=== PATIENT | female | born 1990 | race Caucasian/White ===

== ENCOUNTER 2017-06-02 07:16 | Day surgery (SDC) | payer BC ==
[~2017-06-02 07:16] MED LIST: Lactated Ringers 1,000 ML IV SCH; Sodium Chloride 0.9% 10 ML Syringe FLUSH PRN
[2017-06-02] MEDS ORDERED: Midazolam 1 MG/ML 2 ML SDV IV ONE (08:00)
[2017-06-02] MEDS ORDERED: Lidocaine 2% 100 MG/5 ML Syringe IVPUSH ONE (08:00)
[2017-06-02] MEDS ORDERED: Propofol 200 MG/20 ML SDV IV ONE ×2 (08:00→08:30)
--- NOTE | 2017-06-02 09:05 | PCM.OPNOTE ---
- General Post-Op/Procedure Note Date of Surgery/Procedure: 06/02/17 Operative Procedure(s): egd with bx Findings: gastroduodenitis esophagitis Pre Op Diagnosis: epigastric abd pain Post-Op Diagnosis: gastroduodenitis. esophagitis Anesthesia Technique: [facility] [place] Primary Surgeon: Calos Valenzuela Anesthesia Provider: Delilah Zepeda Pathology: stomach duodenum and esophagus Complications: None Condition: Good Free Text/Narrative:: see dictation
--- NOTE | 2017-06-02 09:25 | OR ---
DATE OF OPERATION: 06/02/2017 SURGEON: Calos Valenzuela MD PROCEDURE PERFORMED: Upper endoscopy with cold forceps biopsy. PREOPERATIVE DIAGNOSIS: Epigastric abdominal pain. POSTOPERATIVE DIAGNOSIS: Gastroduodenitis and esophagitis. INDICATIONS FOR PROCEDURE: This is a 27-year-old white female, who has a longstanding history of epigastric discomfort and pain. Apparently, she has had upper endoscopies in the past and has been informed that she has irritable bowel syndrome. She was offered and accepted an EGD. DESCRIPTION OF OPERATION: After an excellent IV sedation was administered, the bite block was inserted. The flexible endoscope was passed without difficulty down the patient's esophagus into the stomach. The stomach was insufflated, scope was passed through the pylorus to the second portion of duodenum and slowly withdrawn. The following findings were noted. Duodenum 1st portion mild duodenitis, biopsies were taken. Stomach diffuse mild gastritis, mild biopsies were taken. Distal esophagus, a small Schatzki's ring, really not big enough to comment on and some mild irritation in the distal esophagus. Stomach was deflated, scope was removed. The patient tolerated the procedure well and was taken to recovery room in good condition. /[id number] /MODL
[2017-06-02 10:57] VITALS: BP 116/68
== END 2017-06-02 10:20 | disposition home or self-care (01) ==
LOC: FB.SDS 07:16
PROVIDERS: ATTEND Surgery
DX: K29.80 Duodenitis without bleeding (principal); K20.9 Esophagitis, unspecified; K29.50 Unspecified chronic gastritis without bleeding; F41.8 Other specified anxiety disorders; K21.9 Gastro-esophageal reflux disease without esophagitis; Z79.82 Long term (current) use of aspirin; Z79.899 Other long term (current) drug therapy; Z98.890 Other specified postprocedural states
CPT/HCPCS: 43239; 81025; 88305; 88342; J2250; J2704; J7120

== ENCOUNTER 2018-05-03 17:02 | Emergency (ER) | payer BC ==
[2018-05-03] MEDS ORDERED: Ondansetron 4 MG/2 ML SDV IVPUSH ONE (17:17)
[2018-05-03] MEDS ORDERED: Sodium Chloride 0.9% 1,000 ML IV ONE (17:17)
[2018-05-03] MEDS ORDERED: Ketorolac 30 MG/ML SDV IVPUSH ONE (17:20)
[2018-05-03] MEDS ORDERED: Sodium Chloride 0.9% 10 ML Syringe FLUSH PRN (20:14)
[2018-05-03 20:47] VITALS: BP 120/75
--- NOTE | 2018-05-03 20:53 | EDM.PDOC ---
ED HPI GENERAL MEDICAL PROBLEM - General Stated Complaint: 10 WEEKS ,HEAVY BLEEDING Time Seen by Provider: 05/03/18 17:05 Source of Information: Reports: Patient History Limitations: Reports: No Limitations - History of Present Illness INITIAL COMMENTS - FREE TEXT/NARRATIVE: c/o vag bleed at 10w gestation, PCP Dr Dinero, had u/a done, no blood work, no yet seen Dr iDnero\ pt here with pt with mild cramps x 5d, inc'd x 24h, quite hard cramps on arrival and had several gushes of blood intravag proble by educational technology coordinator showed empty uterus with symmetric thickened endometrium, nl ovaries and large clot in vagina which evacuated shortly thereafter serum HCG 23k and 1/2 expected level, CBC and BMP neg had pads x 3 after passing large clot which was sent to path pt did not know Rh which was tested and was neg, given just over 50 mcg mini dose of Rhogram (1/5th of full dose of 300 micrograms) no clinical evidence of infection uterus completely evacuated except for residual endometrium and SAB counseling completed pt and plan to try to get again, had tried for 6m this time - Related Data Allergies Allergy/AdvReac Type Severity Reaction Status Date / Time No Known Allergies Allergy Verified 05/03/18 20:10 Home Meds: Home Meds NK [No Known Home Meds] 05/03/18 [History] Past Medical History HEENT History: Reports: Allergic Rhinitis Cardiovascular History: Reports: Heart Murmur Gastrointestinal History: Reports: GERD, Irritable Bowel Syndrome Musculoskeletal History: Reports: Back Pain, Chronic Psychiatric History: Reports: Anxiety, Depression - Past Surgical History HEENT Surgical History: Reports: Oral Surgery Social & Family History - Caffeine Use Caffeine Use: Reports: Soda ED ROS GENERAL - Review of Systems Review Of Systems: See Below Constitutional: Reports: No Symptoms HEENT: Reports: No Symptoms Respiratory: Reports: No Symptoms Cardiovascular: Reports: No Symptoms Endocrine: Reports: No Symptoms GI/Abdominal: Reports: Abdominal Pain : Reports: Other (vag bleeding) Musculoskeletal: Reports: No Symptoms Skin: Reports: No Symptoms Neurological: Reports: No Symptoms Psychiatric: Reports: No Symptoms Hematologic/Lymphatic: Reports: No Symptoms Immunologic: Reports: No Symptoms ED EXAM - Physical Exam Exam: See Below Exam Limited By: No Limitations General Appearance: Alert, WD/WN, Mild Distress Eye Exam: Bilateral Eye: Normal Inspection Ears: Normal External Exam, Hearing Grossly Normal Nose: Normal Inspection, Normal Mucosa, No Blood Throat/Mouth: Normal Inspection, Normal Teeth, Normal Voice Head: Atraumatic Neck: Normal Inspection, Supple, Non-Tender, Full Range of Motion Respiratory/Chest: No Respiratory Distress, Lungs Clear, Normal Breath Sounds, No Accessory Muscle Use, Chest Non-Tender Cardiovascular: Regular Rate, Rhythm, No Edema, No Gallop, No Murmur, No Rub GI/Abdominal Exam: Normal Bowel Sounds, Soft, No Distention, Other (slight tender in suprpubic area, no CVAT) (Female) Exam: Vaginal Bleeding, Other (deferred) Back Exam: Normal Inspection, Full Range of Motion. No: CVA Tenderness (R), CVA Tenderness (L) Extremities: Normal Inspection, Normal Range of Motion, Non-Tender, No Pedal Edema Neurological: Alert, Oriented, CN II-XII Intact, Normal Cognition, No Motor/ Sensory Deficits Psychiatric: Normal Affect, Normal Mood Skin Exam: Warm, Dry, Intact, Normal Color, No Rash Lymphatic: No Adenopathy Course - Vital Signs Last Recorded V/S: Last Vital Signs Temp 36.6 C 05/03/18 20:45 Pulse 75 05/03/18 20:45 Resp 18 05/03/18 20:45 BP 120/75 05/03/18 20:45 Pulse Ox 97 05/03/18 20:45 - Orders/Labs/Meds Orders: Active Orders 24 hr Category Date Time Status OB 1st Tri Sgl 1st Gest [US] Stat Exams 05/03/18 17:48 Ordered RH IMMUNE GLOBULIN [BBK] Stat Lab 05/03/18 17:40 Results RHOGAM, [RHIG WORKUP, ] [BBK] Stat Lab 05/03/18 19:56 Ordered Sodium Chloride 0.9% [Saline Flush] Med 05/03/18 20:14 Active 10 ml FLUSH ASDIRECTED PRN Peripheral IV Insertion Adult [OM.PC] Routine Oth 05/03/18 17:10 Ordered Medication Orders Sodium Chloride (Saline Flush) 10 ml FLUSH ASDIRECTED PRN PRN Reason: Keep Vein Open Last Admin: 05/03/18 17:20 Dose: 10 ml Labs: Laboratory Tests 05/03/18 05/03/18 05/03/18 Range/Units 17:40 17:40 17:40 WBC 12.6 H (4.5-12.0) X10-3/uL RBC 4.74 (3.23-5.20) x10(6)uL Hgb 14.2 (11.5-15.5) g/dL Hct 41.3 (30.0-51.3) % MCV 87.1 (80-96) fL MCH 29.9 (27.7-33.6) pg MCHC 34.3 (32.2-35.4) g/dL RDW 12.0 (11.5-15.5) % Plt Count 320 (125-369) X10(3)uL MPV 7.5 (7.4-10.4) fL Neut % (Auto) 73.8 (46-82) % Lymph % (Auto) 20.8 (13-37) % [place] % (Auto) 4.4 (4-12) % Eos % (Auto) 1 (1.0-5.0) % Baso % (Auto) 0 (0-2) % Neut # (Auto) 9.2 H (1.6-8.3) # Lymph # (Auto) 2.6 (0.6-5.0) # [place] # (Auto) 0.6 (0.0-1.3) # Eos # (Auto) 0.1 (0.0-0.8) # Baso # (Auto) 0.1 (0.0-0.2) # Sodium 138 (135-145) mmol/L Potassium 4.1 (3.5-5.3) mmol/L Chloride 101 (100-110) mmol/L Carbon Dioxide 27 (21-32) mmol/L BUN 12 (7-18) mg/dL Creatinine 0.7 (0.55-1.02) mg/dL Est Cr Clr Drug Dosing TNP Estimated GFR (MDRD) > 60 (>60) BUN/Creatinine Ratio 17.1 (9-20) Glucose 91 (80-116) mg/dL Calcium 9.3 (8.6-10.2) mg/dL HCG, Quant 16089 (<5) mIU/mL Blood Type Gel Antibody Screen Rhogam Indicated 05/03/18 05/03/18 Range/Units 17:40 17:40 WBC (4.5-12.0) X10-3/uL RBC (3.23-5.20) x10(6)uL Hgb (11.5-15.5) g/dL Hct (30.0-51.3) % MCV (80-96) fL MCH (27.7-33.6) pg MCHC (32.2-35.4) g/dL RDW (11.5-15.5) % Plt Count (125-369) X10(3)uL MPV (7.4-10.4) fL Neut % (Auto) (46-82) % Lymph % (Auto) (13-37) % [place] % (Auto) (4-12) % Eos % (Auto) (1.0-5.0) % Baso % (Auto) (0-2) % Neut # (Auto) (1.6-8.3) # Lymph # (Auto) (0.6-5.0) # [place] # (Auto) (0.0-1.3) # Eos # (Auto) (0.0-0.8) # Baso # (Auto) (0.0-0.2) # Sodium (135-145) mmol/L Potassium (3.5-5.3) mmol/L Chloride (100-110) mmol/L Carbon Dioxide (21-32) mmol/L BUN (7-18) mg/dL Creatinine (0.55-1.02) mg/dL Est Cr Clr Drug Dosing Estimated GFR (MDRD) (>60) BUN/Creatinine Ratio (9-20) Glucose (80-116) mg/dL Calcium (8.6-10.2) mg/dL HCG, Quant (<5) mIU/mL Blood Type A NEGATIVE A NEGATIVE Gel Antibody Screen Negative Rhogam Indicated Yes Meds: Medications Generic Name Dose Route Start Last Admin Trade Name Freq PRN Reason Stop Dose Admin Sodium Chloride 10 ml 05/03/18 20:14 05/03/18 17:20 Saline Flush FLUSH 10 ml ASDIRECTED PRN Administration Keep Vein Open Discontinued Medications Generic Name Dose Route Start Last Admin Trade Name Freq PRN Reason Stop Dose Admin Sodium Chloride 1,000 mls @ 999 mls/hr 05/03/18 17:17 05/03/18 17:20 Normal Saline IV 05/03/18 18:17 999 mls/hr .BOLUS ONE Administration Ketorolac Tromethamine 30 mg 05/03/18 17:20 05/03/18 17:20 Toradol IVPUSH 05/03/18 17:21 30 mg ONETIME ONE Administration Ondansetron HCl 4 mg 05/03/18 17:17 05/03/18 17:20 Zofran IVPUSH 05/03/18 17:18 4 mg ONETIME ONE Administration Departure - Departure Time of Disposition: 20:54 Disposition: Home, Self-Care 01 Clinical Impression: Miscarriage - Discharge Information Instructions: Miscarriage Referrals: Viktor Munoz MD [Primary Care Provider] - Additional Instructions: Rest for 24 hours. Increase fluids. See your doctor in 2 days. Return to ED if you are feeling worse or have increase bleeding or fever or new symptoms. For cramping, as needed, take ibuprofen 200 mg 3 tabs and acetaminophen 500 mg 2 tabs 4 times a day. Call your Physician or Return to Emergency Department if: * Your condition worsens in any way. * You develop fever greater than 100.4. * You have vomitting that does not stop with medications. * You have pain that is not controlled with medications. - My Orders Last 24 Hours: My Active Orders 05/03/18 17:10 Peripheral IV Insertion Adult [OM.PC] Routine 05/03/18 17:40 RH IMMUNE GLOBULIN [BBK] Stat 05/03/18 17:48 OB 1st Tri Sgl 1st Gest [US] Stat 05/03/18 19:56 RHOGAM, [RHIG WORKUP, ] [BBK] Stat 05/03/18 20:14 Sodium Chloride 0.9% [Saline Flush] 10 ml FLUSH ASDIRECTED PRN - Assessment/Plan Last 24 Hours: My Active Orders 05/03/18 17:10 Peripheral IV Insertion Adult [OM.PC] Routine 05/03/18 17:40 RH IMMUNE GLOBULIN [BBK] Stat 05/03/18 17:48 OB 1st Tri Sgl 1st Gest [US] Stat 05/03/18 19:56 RHOGAM, [RHIG WORKUP, ] [BBK] Stat 05/03/18 20:14 Sodium Chloride 0.9% [Saline Flush] 10 ml FLUSH ASDIRECTED PRN
--- NOTE | 2018-05-04 12:42 | US ---
INDICATION: Rule out ectopic, heavy bleeding with bright red blood vaginally. OB ULTRASOUND, FIRST TRIMESTER: Multiple ultrasonic images were obtained 05/03 and revealed the uterus to appear fairly normal with prominent endometrial cavity echo that is heterogeneous. No intrauterine gestation was identified. There is a mass in the vagina, which measures approximately 8.8 x 5.1 x 5.3 cm and is surrounded by fluid. Likely this represents a large clot. There is no interior blood flow seen. The ovaries were unremarkable with no significant cystic changes and measured, on the right, 2 x 1.51 x 1.45 cm, and on the left, 1.96 x 2.15 x 1.64 cm. No adnexal mass lesions or free fluid collections were identified. IMPRESSION: Findings are compatible with this patients history with a miscarriage in progress. A very large clot is suggested in the vagina. Clots are probably present in the endometrial cavity. Fluid is seen around the clot in the vagina, compatible with active bleeding. No ectopic seen. MTDD
== END 2018-05-03 21:10 | disposition home or self-care (01) ==
LOC: FB.ED 17:02
DX: O03.9 Complete or unspecified spontaneous abortion without complication (principal); Z3A.10 10 weeks gestation of pregnancy
CPT/HCPCS: 36415; 36430; 76801; 80048; 84702; 85025; 86850; 86900; 86901; 96361; 96372; 96374; 96375; 99284; J1885; J2405; J2790; J7030; J7050

== ENCOUNTER 2018-05-05 11:15 | Emergency (ER) | payer BC ==
[2018-05-05] MEDS: Ketorolac 60 MG/2 ML SDV IM ONE (12:10)
--- NOTE | 2018-05-05 14:17 | EDM.PDOC ---
ED HPI GENERAL MEDICAL PROBLEM - General 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: CRAMPING Time Seen by Provider: 05/05/18 14:12 Source of Information: Reports: Patient History Limitations: Reports: No Limitations - History of Present Illness INITIAL COMMENTS - FREE TEXT/NARRATIVE: c/o hard cramping barely able to walk, on 3rd floor apt, rushed her here feeling much better after Toradol worried that she may have more pain at home did go to [facility] earlier today but was fairly weak hgb 9.7 today and down from 14.2 from 2d ago, urine not concentrated, has been drinking well, not too much of appetite for solids no f/c/d WBC 7.3 today and down from 12.6 from 2d ago, no shift, segs 63.9% path not back on uterine contents cath u/a today is neg has an apt in 2d with Dr Munoz pt will continue on PNV with Fe x 6w pending further recommendations from Dr Munoz dec'd flow today, 4 pad yesterday, lochia with purulence as per RN who examined it - Related Data Allergies Allergy/AdvReac Type Severity Reaction Status Date / Time No Known Allergies Allergy Verified 05/03/18 20:10 Home Meds: Home Meds FLUoxetine [PROzac] 5 mg PO DAILY 05/05/18 [History] traMADol HCl [Tramadol HCl] 50 mg PO Q6H PRN #8 tablet 05/05/18 [Rx] valACYclovir HCl [Valtrex] 500 mg PO DAILY 05/05/18 [History] Past Medical History HEENT History: Reports: Allergic Rhinitis Cardiovascular History: Reports: Heart Murmur Gastrointestinal History: Reports: GERD, Irritable Bowel Syndrome 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 Musculoskeletal History: Reports: Back Pain, Chronic Psychiatric History: Reports: Anxiety, Depression - Past Surgical History HEENT Surgical History: Reports: Oral Surgery Social & Family History - Tobacco Use Smoking Status *Q: Never Smoker - Caffeine Use Caffeine Use: Reports: Soda - Alcohol Use Days Per Week of Alcohol Use: 2 Number of Drinks Per Day: 2 Total Drinks Per Week: 4 - Recreational Drug Use Recreational Drug Use: No ED ROS GENERAL - Review of Systems Review Of Systems: See Below Constitutional: Reports: No Symptoms HEENT: Reports: No Symptoms Respiratory: Reports: No Symptoms Cardiovascular: Reports: No Symptoms Endocrine: Reports: No Symptoms GI/Abdominal: Reports: No Symptoms Musculoskeletal: Reports: No Symptoms Skin: Reports: No Symptoms Neurological: Reports: No Symptoms Psychiatric: Reports: No Symptoms Hematologic/Lymphatic: Reports: No Symptoms Immunologic: Reports: No Symptoms ED EXAM, GI/ABD - Physical Exam Exam: See Below Exam Limited By: No Limitations General Appearance: Alert, WD/WN, No Apparent Distress, Other (nontoxic) Ears: Normal External Exam Nose: Normal Inspection Throat/Mouth: Normal Inspection, Normal Lips, No Airway Compromise Head: Atraumatic, Normocephalic Neck: Normal Inspection, Supple, Non-Tender, Full Range of Motion Respiratory/Chest: No Respiratory Distress, Lungs Clear, Normal Breath Sounds, No Accessory Muscle Use, Chest Non-Tender Cardiovascular: Regular Rate, Rhythm, No Edema, No Gallop, No Murmur, No Rub GI/Abdominal Exam: Soft, No Distention, Other (good BS x 4, nonspecific tender across lower half of abd) Back Exam: Normal Inspection, Full Range of Motion, NT Extremities: Normal Inspection, Normal Range of Motion, Non-Tender, No Pedal Edema Neurological: Alert, Oriented, CN II-XII Intact, Normal Cognition, No Motor/ Sensory Deficits Psychiatric: Normal Affect, Normal Mood Skin Exam: Warm, Dry, Intact, Normal Color, No Rash Lymphatic: No Adenopathy Course - Vital Signs Last Recorded V/S: Last Vital Signs Temp 36.6 C 05/05/18 11:15 Pulse 81 05/05/18 11:15 Resp 18 05/05/18 11:15 BP 143/76 H 05/05/18 11:15 Pulse Ox 99 05/05/18 11:15 - Orders/Labs/Meds Orders: Active Orders 24 hr Category Date Time Status URINALYSIS W/MICROSCOPIC [UA W/MICROSCOPIC] [URIN] Stat Lab 05/05/18 13:29 Ordered Labs: Laboratory Tests 05/05/18 05/05/18 Range/Units 12:00 13:29 WBC 7.3 (4.5-12.0) X10-3/uL RBC 3.19 L (3.23-5.20) x10(6)uL Hgb 9.7 L D (11.5-15.5) g/dL Hct 27.8 L D (30.0-51.3) % MCV 87.1 (80-96) fL MCH 30.5 (27.7-33.6) pg MCHC 35.1 (32.2-35.4) g/dL RDW 12.1 (11.5-15.5) % Plt Count 282 (125-369) X10(3)uL MPV 7.5 (7.4-10.4) fL Neut % (Auto) 63.9 (46-82) % Lymph % (Auto) 29.9 (13-37) % [place] % (Auto) 5.2 (4-12) % Eos % (Auto) 1 (1.0-5.0) % Baso % (Auto) 0 (0-2) % Neut # (Auto) 4.6 (1.6-8.3) # Lymph # (Auto) 2.2 (0.6-5.0) # [place] # (Auto) 0.4 (0.0-1.3) # Eos # (Auto) 0.1 (0.0-0.8) # Baso # (Auto) 0.0 (0.0-0.2) # Urine Color Yellow (YELLOW) Urine Appearance Slightly cloudy (CLEAR) Urine pH 5.0 (5.0-6.5) Ur Specific [place] 1.015 (1.010-1.025) Urine Protein Negative (NEGATIVE) mg/dL Urine Glucose (UA) Normal (NEGATIVE) mg/dL Urine Ketones Negative (NEGATIVE) mg/dL Urine Occult Blood Large H (NEGATIVE) Urine Nitrite Negative (NEGATIVE) Urine Bilirubin Negative (NEGATIVE) Urine Urobilinogen Normal (NEGATIVE) mg/dL Ur Leukocyte Esterase Negative (NEGATIVE) Urine RBC 10-20 H (0) Urine WBC 0-5 (0) Ur Squamous Epith Cells Few H (NS,R,O) Urine Bacteria Few H (NS) Meds: Medications Discontinued Medications Generic Name Dose Route Start Last Admin Trade Name Freq PRN Reason Stop Dose Admin Ketorolac Tromethamine 60 mg 05/05/18 11:52 05/05/18 12:10 Toradol IM 05/05/18 11:53 60 mg ONETIME ONE Administration Departure - Departure Time of Disposition: 14:19 Disposition: Home, Self-Care 01 Condition: Good Clinical Impression: Uterine cramping - Discharge Information Prescriptions: traMADol HCl [Tramadol HCl] 50 mg PO Q6H PRN #8 tablet PRN Reason: Pain Instructions: Dysmenorrhea Referrals: Viktor Munoz MD [Primary Care Provider] - Additional Instructions: ED HPI GENERAL MEDICAL PROBLEM - General 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: CRAMPING Time Seen by Provider: 05/05/18 14:12 Source of Information: Reports: Patient History Limitations: Reports: No Limitations - History of Present Illness INITIAL COMMENTS - FREE TEXT/NARRATIVE: c/o hard cramping barely able to walk, on 3rd floor apt, rushed her here feeling much better after Toradol worried that she may have more pain at home did go to [facility] earlier today but was fairly weak hgb 9.7 today and down from 14.2 from 2d ago, urine not concentrated, has been drinking well, not too much of appetite for solids no f/c/d WBC 7.3 today and down from 12.6 from 2d ago, no shift, segs 63.9% path not back on uterine contents cath u/a today is neg has an apt in 2d with Dr Munoz pt will continue on PNV with Fe x 6w pending further recommendations from Dr Munoz dec'd flow today, 4 pad yesterday, lochia with purulence as per RN who examined it - Related Data Allergies Allergy/AdvReac Type Severity Reaction Status Date / Time No Known Allergies Allergy Verified 05/03/18 20:10 Home Meds: Home Meds FLUoxetine [PROzac] 5 mg PO DAILY 05/05/18 [History] valACYclovir HCl [Valtrex] 500 mg PO DAILY 05/05/18 [History] Past Medical History HEENT History: Reports: Allergic Rhinitis Cardiovascular History: Reports: Heart Murmur Gastrointestinal History: Reports: GERD, Irritable Bowel Syndrome 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 Musculoskeletal History: Reports: Back Pain, Chronic Psychiatric History: Reports: Anxiety, Depression - Past Surgical History HEENT Surgical History: Reports: Oral Surgery Social & Family History - Tobacco Use Smoking Status *Q: Never Smoker - Caffeine Use Caffeine Use: Reports: Soda - Alcohol Use Days Per Week of Alcohol Use: 2 Number of Drinks Per Day: 2 Total Drinks Per Week: 4 - Recreational Drug Use Recreational Drug Use: No ED ROS GENERAL - Review of Systems Review Of Systems: See Below Constitutional: Reports: No Symptoms HEENT: Reports: No Symptoms Respiratory: Reports: No Symptoms Cardiovascular: Reports: No Symptoms Endocrine: Reports: No Symptoms GI/Abdominal: Reports: No Symptoms Musculoskeletal: Reports: No Symptoms Skin: Reports: No Symptoms Neurological: Reports: No Symptoms Psychiatric: Reports: No Symptoms Hematologic/Lymphatic: Reports: No Symptoms Immunologic: Reports: No Symptoms ED EXAM, GI/ABD - Physical Exam Exam: See Below Exam Limited By: No Limitations General Appearance: Alert, WD/WN, No Apparent Distress, Other (nontoxic) Ears: Normal External Exam Nose: Normal Inspection Throat/Mouth: Normal Inspection, Normal Lips, No Airway Compromise Head: Atraumatic, Normocephalic Neck: Normal Inspection, Supple, Non-Tender, Full Range of Motion Respiratory/Chest: No Respiratory Distress, Lungs Clear, Normal Breath Sounds, No Accessory Muscle Use, Chest Non-Tender Cardiovascular: Regular Rate, Rhythm, No Edema, No Gallop, No Murmur, No Rub GI/Abdominal Exam: Soft, No Distention, Other (good BS x 4, nonspecific tender across lower half of abd) Back Exam: Normal Inspection, Full Range of Motion, NT Extremities: Normal Inspection, Normal Range of Motion, Non-Tender, No Pedal Edema Neurological: Alert, Oriented, CN II-XII Intact, Normal Cognition, No Motor/ Sensory Deficits Psychiatric: Normal Affect, Normal Mood Skin Exam: Warm, Dry, Intact, Normal Color, No Rash Lymphatic: No Adenopathy Course - Vital Signs Last Recorded V/S: Last Vital Signs Temp 36.6 C 05/05/18 11:15 Pulse 81 05/05/18 11:15 Resp 18 05/05/18 11:15 BP 143/76 H 05/05/18 11:15 Pulse Ox 99 05/05/18 11:15 - Orders/Labs/Meds Orders: Active Orders 24 hr Category Date Time Status URINALYSIS W/MICROSCOPIC [UA W/MICROSCOPIC] [URIN] Stat Lab 05/05/18 13:29 Ordered Labs: Laboratory Tests 05/05/18 05/05/18 Range/Units 12:00 13:29 WBC 7.3 (4.5-12.0) X10-3/uL RBC 3.19 L (3.23-5.20) x10(6)uL Hgb 9.7 L D (11.5-15.5) g/dL Hct 27.8 L D (30.0-51.3) % MCV 87.1 (80-96) fL MCH 30.5 (27.7-33.6) pg MCHC 35.1 (32.2-35.4) g/dL RDW 12.1 (11.5-15.5) % Plt Count 282 (125-369) X10(3)uL MPV 7.5 (7.4-10.4) fL Neut % (Auto) 63.9 (46-82) % Lymph % (Auto) 29.9 (13-37) % [place] % (Auto) 5.2 (4-12) % Eos % (Auto) 1 (1.0-5.0) % Baso % (Auto) 0 (0-2) % Neut # (Auto) 4.6 (1.6-8.3) # Lymph # (Auto) 2.2 (0.6-5.0) # [place] # (Auto) 0.4 (0.0-1.3) # Eos # (Auto) 0.1 (0.0-0.8) # Baso # (Auto) 0.0 (0.0-0.2) # Urine Color Yellow (YELLOW) Urine Appearance Slightly cloudy (CLEAR) Urine pH 5.0 (5.0-6.5) Ur Specific [place] 1.015 (1.010-1.025) Urine Protein Negative (NEGATIVE) mg/dL Urine Glucose (UA) Normal (NEGATIVE) mg/dL Urine Ketones Negative (NEGATIVE) mg/dL Urine Occult Blood Large H (NEGATIVE) Urine Nitrite Negative (NEGATIVE) Urine Bilirubin Negative (NEGATIVE) Urine Urobilinogen Normal (NEGATIVE) mg/dL Ur Leukocyte Esterase Negative (NEGATIVE) Urine RBC 10-20 H (0) Urine WBC 0-5 (0) Ur Squamous Epith Cells Few H (NS,R,O) Urine Bacteria Few H (NS) Meds: Medications Discontinued Medications Generic Name Dose Route Start Last Admin Trade Name Freq PRN Reason Stop Dose Admin Ketorolac Tromethamine 60 mg 05/05/18 11:52 05/05/18 12:10 Toradol IM 05/05/18 11:53 60 mg ONETIME ONE Administration Departure - Departure Time of Disposition: 14:19 Disposition: Home, Self-Care 01 Condition: Good Clinical Impression: Uterine cramping - Discharge Information Referrals: Viktor Munoz MD [Primary Care Provider] - - My Orders Last 24 Hours: My Active Orders 05/05/18 13:29 URINALYSIS W/MICROSCOPIC [UA W/MICROSCOPIC] [URIN] Stat - Assessment/Plan Last 24 Hours: My Active Orders 05/05/18 13:29 URINALYSIS W/MICROSCOPIC [UA W/MICROSCOPIC] [URIN] Stat Continue acetaminophen 500 mg 2 tabs and ibuprofen 200 mg 3 tabs Care Plan Goals: For pain and inflammation, take ibuprofen 200 mg 3 tabs and acetaminophen 500 mg 2 tabs 4 times a day for 2 days, longer if needed. Take regularly, do not wait for pain. For pain, as needed, may also take tramadol 50 mg 1-2 tabs every 6 hours. Continue fluids as you have done. Eat solids as tolerated. See Dr Munoz in 2 days as scheduled. Return to ED if you are feeling worse or develop a fever or other new symptoms. - My Orders Last 24 Hours: My Active Orders 05/05/18 13:29 URINALYSIS W/MICROSCOPIC [UA W/MICROSCOPIC] [URIN] Stat - Assessment/Plan Last 24 Hours: My Active Orders 05/05/18 13:29 URINALYSIS W/MICROSCOPIC [UA W/MICROSCOPIC] [URIN] Stat
[2018-05-05 16:46] VITALS: BP 126/65
== END 2018-05-05 15:05 | disposition home or self-care (01) ==
LOC: FB.ED 11:22
DX: N94.89 Other specified conditions associated with female genital organs and menstrual cycle (principal)
CPT/HCPCS: 36415; 81001; 85025; 96372; 99284; J1885

== ENCOUNTER 2019-12-18 16:51 | Emergency (ER) | payer BC ==
[2019-12-18 17:03] VITALS: BP 156/84; PULSE 63
--- NOTE | 2019-12-18 17:15 | EDM.PDOC ---
ED HPI GENERAL MEDICAL PROBLEM - General Chief Complaint: Chest Pain Stated Complaint: CHEST PAINS Time Seen by Provider: 12/18/19 17:05 Source of Information: Reports: Patient History Limitations: Reports: No Limitations - History of Present Illness INITIAL COMMENTS - FREE TEXT/NARRATIVE: having tightness in her chest states she is not able to breathe well was seen wendday and told to take proilosec states symptoms have not improved now having tightness in her chest more just gave to baby girl 2 months ago Onset: Gradual Onset Date: 12/18/19 Duration: Day(s):, Getting Worse Location: Reports: Chest Quality: Reports: Pressure Severity: Moderate Improves with: Reports: Rest Worsens with: Reports: Movement Associated Symptoms: Reports: Shortness of Breath Treatments [employer]: Reports: Other (see below) (prozac , prilosec) - Related Data Allergies Allergy/AdvReac Type Severity Reaction Status Date / Time No Known Allergies Allergy Verified 12/18/19 16:59 Home Meds: Home Meds FLUoxetine [PROzac] 5 mg PO DAILY 05/05/18 [History] valACYclovir HCl [Valtrex] 500 mg PO DAILY 05/05/18 [History] Past Medical History HEENT History: Reports: Allergic Rhinitis Cardiovascular History: Reports: Heart Murmur Gastrointestinal History: Reports: GERD, Irritable Bowel Syndrome [employer] History: Reports: Spontaneous Musculoskeletal History: Reports: Back Pain, Chronic Psychiatric History: Reports: Anxiety, Depression - Past Surgical History HEENT Surgical History: Reports: Oral Surgery Social & Family History - Caffeine Use Caffeine Use: Reports: Soda ED ROS GENERAL - Review of Systems Review Of Systems: See Below Constitutional: Reports: Malaise, Fatigue, Decreased Appetite HEENT: Reports: No Symptoms Respiratory: Reports: No Symptoms Cardiovascular: Reports: No Symptoms Endocrine: Reports: No Symptoms GI/Abdominal: Reports: No Symptoms : Reports: No Symptoms Musculoskeletal: Reports: Hand Pain Skin: Reports: No Symptoms Neurological: Reports: No Symptoms Psychiatric: Reports: Anxiety Hematologic/Lymphatic: Reports: No Symptoms Immunologic: Reports: No Symptoms ED EXAM, GENERAL - Physical Exam Exam: See Below Exam Limited By: No Limitations General Appearance: Alert, WD/WN, No Apparent Distress Eye Exam: Bilateral Eye: EOMI Ears: Normal TMs Nose: Normal Inspection Neck: Normal Inspection, Supple, Non-Tender, Full Range of Motion Respiratory/Chest: No Respiratory Distress, Lungs Clear, Other (localized tenderness on palpation of the lower chest wall and sternum) Cardiovascular: Normal Peripheral Pulses, Regular Rate, Rhythm GI/Abdominal: Soft, Non-Tender Back Exam: Full Range of Motion Extremities: Normal Range of Motion, Non-Tender, No Pedal Edema Neurological: Alert, Oriented Psychiatric: Normal Affect EKG INTERPRETATION EKG Date: 12/18/19 Rhythm: NSR [place]: Normal P-Wave: Present QRS: Normal ST-T: Normal QT: Normal Course - Vital Signs Last Recorded V/S: Last Vital Signs Temp 36.9 C 12/18/19 17:00 Pulse 63 12/18/19 17:00 Resp 18 12/18/19 17:00 BP 156/84 H 12/18/19 17:00 Pulse Ox 100 12/18/19 17:00 - Re-Assessments/Exams Free Text/Narrative Re-Assessment/Exam: 12/18/19 17:20 on completion of exam and EKG , told pt was going to order test and givne her medication she and friend/ got and left stating she was going to [facility] Departure - Departure Time of Disposition: 05:15 Disposition: Eloped 07 Condition: Fair Clinical Impression: Anxiety disorder affecting , antepartum, Anxiety disorder, Panic disorder Referrals: PCP,None [Primary Care Provider] - Sepsis Event Note - Evaluation Sepsis Screening Result: No Definite Risk - Focused Exam Vital Signs: Vital Signs Temp Pulse Resp BP Pulse Ox 12/18/19 17:00 36.9 C 63 18 156/84 H 100 Date Exam was Performed: 12/18/19 Time Exam was Performed: 17:10
== END 2019-12-18 17:14 | disposition left against medical advice (07) ==
LOC: FB.ED 16:51
DX: O99.340 Other mental disorders complicating pregnancy, unspecified trimester (principal); F41.0 Panic disorder [episodic paroxysmal anxiety]; F32.9 Major depressive disorder, single episode, unspecified; Z79.899 Other long term (current) drug therapy
CPT/HCPCS: 99284-25

== ENCOUNTER 2023-04-20 07:27 | Day surgery (SDC) | payer OTHER, MEDICAID ==
[2023-04-20] MEDS ORDERED: Propofol 200 MG/20 ML SDV IV ONE (07:28)
[2023-04-20] MEDS ORDERED: Lidocaine 2% 5 ML SDV IV ONE (07:28)
[2023-04-20] MEDS ORDERED: Simethicone Drops 40 MG/0.6 ML 30 ML Bottle PO ONE (08:36)
[2023-04-20 09:46] VITALS: BP 139/92; PULSE 52
== END 2023-04-20 09:53 | disposition home or self-care (01) ==
LOC: FB.SDS 07:27
PROVIDERS: ATTEND Surgery
DX: K29.50 Unspecified chronic gastritis without bleeding (principal); K29.80 Duodenitis without bleeding; K31.89 Other diseases of stomach and duodenum; R13.10 Dysphagia, unspecified; F41.9 Anxiety disorder, unspecified; F32.A Depression, unspecified; K21.9 Gastro-esophageal reflux disease without esophagitis; I10 Essential (primary) hypertension; K58.9 Irritable bowel syndrome, unspecified; Z98.890 Other specified postprocedural states; Z79.899 Other long term (current) drug therapy; Z87.19 Personal history of other diseases of the digestive system
CPT/HCPCS: 00731; 81025; 88305; 88342; A9270-GY; J2704; J7120